=== PATIENT | male | born 1960 | race Caucasian/White ===

== ENCOUNTER → 2024-12-07 07:13 | Outpatient (REF) | payer OTHER, SELFPAY | LOC: RAD 07:13 | PROVIDERS: ATTENDING PHYSICIAN Family Medicine | DX: R10.13 Epigastric pain (principal) | CPT/HCPCS: 76700 ==

== ENCOUNTER → 2025-01-03 09:39 | Day surgery (SDC) | payer OTHER, SELFPAY ==
[2025-01-03 10:28] VITALS: BMI 40.2
[2025-01-03 10:54] LABS: Glucose - Point of Care 106 mg/dl (70-99)
--- NOTE | 2025-01-03 13:57 | ITS.CL.CARDI ---
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
Cardioversion
Procedure Report:
Cardioversion:
Mr. Rosado is a very pleasant 64 yrs old pleasant gentleman with hx of atrial fibrillation, anticoagulated with Eliquis without interruptions, presented in atrial fibrillation is here for elective DV cardioversion.
Date of the Procedure:
01/03/2025
Indications:
Recurrence of symptomatic atrial fibrillation
Pre-Operative Diagnosis:
Persistent Atrial fibrillation
Post-Operative Diagnosis:
Persistent Atrial fibrillation
Procedure Performed:
DCCV
Performing Physician:
Tg Beltrán MD
Anesthesia:
See anesthesia records
Pre-procedure Trans-esophageal Echocardiography:
Deferred. Patient has been on uninterrupted chronic anticoagulation therapy with Eliquis for over 2 months.
Detailed Description of the Procedure:
Written informed consent was obtained from the patient after a full explanation of the risks and benefits of the procedure including the risks of sedation and anesthesia.
The patient was brought to the electrophysiology laboratory in stable condition in fasting state. Continuous electrocardiographic and hemodynamic monitoring was initiated. Zoll patches were applied with leah-posterior locations.
The initial rhythm was atrial fibrillation.
Cardioversion:
A pre-procedure and anesthesia administration, a surgical pause was done with time out. The anesthesia commenced with anesthesia services. Once adequate anesthesia achieved, one synchronized 200J shock was delivered to the chest via Zoll patches
with anterior pressure applied but failed to convert him to NSR. Pressure applied to the anterior chest pad and another attempt of synchronized 360J shock was delivered with baptist of sinus rhythm. The patient remained hemodynamically stable
throughout.
Procedure End:
There was sinus rhythm with demand atrial pacing.
Complications of the Procedure:
None
Condition of Patient at Time of Transfer:
Hemodynamically stable with no neurological or vascular compromise.
Summary:
Successful cardioversion and baptist of normal sinus rhythm.
== END ==
LOC: CATH 09:39
PROVIDERS: ATTENDING PHYSICIAN Internal Medicine Cardiovascular Disease; FAMILY PHYSICIAN Family Medicine
DX: I48.19 Other persistent atrial fibrillation (principal); Z79.899 Other long term (current) drug therapy; Z79.01 Long term (current) use of anticoagulants; Z79.84 Long term (current) use of oral hypoglycemic drugs; E11.9 Type 2 diabetes mellitus without complications; Z86.718 Personal history of other venous thrombosis and embolism
CPT/HCPCS: 82962; 92960; 93005

== ENCOUNTER 2025-01-17 07:47 | Day surgery (SDC) | payer OTHER, SELFPAY ==
[2025-01-02 11:49] VITALS: BMI 40.2
[2025-01-02 12:05] LABS: % Basophils 0.9 % (0-2); % Immature Granulocytes 0.3 % (0-0.5); % Lymphocytes 31.1 % (20.5-51.1); % Monocytes 7.8 % (1.7-9.3); % Neutrophils 57.9 % (42.2-75.2); Absolute Basophils 0.1 10^3/uL (0-0.2); Absolute Eosinophils 0.1 10^3/uL (0-0.7); Absolute Monocytes 0.5 10^3/uL (0.1-0.6); Absolute Neutrophils 3.7 10^3/uL (1.4-6.5); Hematocrit 41.5 % (39.0-52.0); Hemoglobin 14.7 g/dL (13.0-18.0); Mean Corp Hgb Conc. 35.4 g/dL (33.0-37.0); Mean Corpuscular Hgb 32.5 pg (27.0-31.0); Mean Corpuscular Volume 91.6 fL (80.0-94.0); Mean Platelet Volume 11.1 fL (7.4-10.4); Nucleated Red Blood Cells % 0 % (-); Platelet Count 190 10^3/uL (130-400); Red Blood Cell Count 4.53 10^6/uL (4.70-6.10); Red Cell Dist. Width 13.6 % (11.5-14.5); White Blood Cell Count 6.4 10^3/uL (4.8-10.8)
[2025-01-02 12:21] LABS: ALT (SGPT) 25 U/L (0-50); AST (SGOT) 23 U/L (17-59); Albumin 4.5 g/dl (3.5-5.0); Alkaline Phosphatase 58 U/L (38-126); Blood Urea Nitrogen 15 mg/dl (9-20); Calcium 9.8 mg/dl (8.4-10.2); Carbon Dioxide 28 mmol/L (22-30); Chloride 105 mmol/L (98-107); Estimated Creatinine Clearance 113 ml/min; Glucose 102 mg/dl (70-99); Potassium 4.6 mmol/L (3.5-5.1); Sodium 140 mmol/L (135-145); Total Bilirubin 0.7 mg/dl (0.2-1.3); Total Protein 7.2 g/dl (6.3-8.2); eGFR > 60.00
[2025-01-17] VITALS (11 sets, daily range): BP systolic 122–141; BP diastolic 70–85; BMI 40.0
[2025-01-17 08:46] LABS: Glucose - Point of Care 116 mg/dl (70-99)
[2025-01-17 12:26] LABS: ACT-LR - POC 347 Seconds (116-155)
[2025-01-17 12:45] LABS: ACT-LR - POC 276 Seconds (116-155)
--- NOTE | 2025-01-17 13:09 | ITS.CL.ABL ---
Procurement Coordinator - Ablation
Ablation
Procedure Report:
AFIB ablation:
Mr. 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
Date of the Procedure:
01/17/2025
Indications:
Persistent atrial fibrillation
Pre-Operative Diagnosis:
Persistent atrial fibrillation
Post-Operative Diagnosis:
Persistent atrial fibrillation
Procedure Performed:
Atrial fibrillation ablation with Pulsed-Field approach for pulmonary vein isolation
Performing Physician:
Tg Beltrán MD
Assistants:
EP staff
Anesthesia:
See anesthesia records
Detailed Description of the Procedure:
Written informed consent was obtained from the patient after a full explanation of the risks and benefits of the procedure including the risks of sedation and anesthesia.
The patient was brought to the electrophysiology laboratory in stable condition in fasting state. Continuous electrocardiographic and hemodynamic monitoring was initiated.
The initial rhythm was sinus.
The procedure site was meticulously prepared with surgical scrub and allowed to dry with no pooling. Sterile draping was applied to cover the procedure site. The image intensifier was draped with sterile bag and positioned over the patient. After
infusion of local anesthetic, vascular access was obtained under ultrasound guidance and sheaths were placed over guide wire as detailed below.
Sheath and Catheter Placement:
The following catheters / sheaths were placed
Sheaths:
��������� 17Fr steerable sheath (Faradrive�, [employer]) in right femoral
��������� 9Fr in right femoral vein
Catheters:
��������� JOHN HD Grid mapping catheter � at locations of RA, LA
��������� Farawave� PFA catheter
��������� ICE catheter �[employer] ViewFlex - at locations of RA, SVC, and RV.
Intracardiac ECHO:
An 8-Niuean AcuNav intracardiac ECHO (ICE) probe was advanced through the 9-Niuean sheath in the right femoral vein into the right atrium under fluoroscopic and ICE ultrasound image guidance and a baseline ECHO study was performed. The left atrial
size was dilated. There was moderate tricuspid regurgitation. The aortic valve was grossly normal. There was normal left ventricular systolic functions. There is no pericardial effusion. All the four veins were identified and has flow identified.
There was good flow noted in the RADU.
During the procedure, ICE was used for monitoring of complications, guidance of trans-septal puncture, monitor the catheter position and tracking ablation lesions. No change in the pericardial space noted throughout the procedure.
Trans-septal Puncture:
Heparin was initiated and infused to maintain appropriate ACT. A pigtail guidewire was advanced through the 8-Niuean sheath in the right femoral vein into the superior vena cava under fluoroscopic and ICE guidance. The 9-Niuean sheath was exchanged
for a Faradrive sheath which was advanced into the superior vena cava. A transseptal RF pigtail via Faradrive connect system was utilized to perform the trans-septal puncture. The apparatus was withdrawn until it was in contact with the fossa
ovalis. The position was adjusted based on fluoroscopy and ultrasound images from ICE. Under fluoroscopic, hemodynamic and ICE ultrasound guidance, left atrium was cannulated by applying RF energy. Once atrial septum was cannulated, the pigtail wire
was advanced through the needle into the left atrium. The guide wire was advanced into the left superior pulmonary vein. Both the sheath and the dilator was advanced into the left atrium. The dilator with the needle was withdrawn. Blood was
aspirated from the Faradrive sheath and arterial blood confirmed. The sheath was flushed. Saline injection noted into the left atrium on ICE. The mapping catheter was advanced in the sheath into the left pulmonary vein. Left atrial pressure was
measured.
3D Electroanatomic Mapping:
Using the HD Grid catheter advanced through sheath into the left atrium, an electroanatomic map (EAM) of the left atrium was created using [employer] mapping system. The map was used for localization of catheter position and tacking of ablation
lesions.
The EAM of the left atrium showed 5 pulmonary veins (2 left and 3 right) with all 5 veins electrically connected to the body the LA. It showed good signals with no scar in sinus rhythm. The LA was dilated in size.
Following the EAM, preparation were made for ablation.
Ablation:
Ablation # 1: Pulmonary vein Isolation:
Using Farawave pulsed field ablation system, pulmonary vein isolation was achieved. First the ablation catheter was placed in the LSPV and ostial ablation lesions were performed in an �[place]� formation of the Farawave configuration and a counter
clock mckenzie rotation was done and ablated to cover the area between the electrodes. Then the catheter was placed on the antral location in �[place]� configuration and multiple ablation lesions were placed circumferentially on the antrum of the vein.
In the similar fashion, the LIPV were isolated.
Then the catheter was moved to right sided veins. The ostial and antral ablations were placed as noted above.
Patient went into atrial fibrillation with catheter placement into the right middle PV. AF terminated into sinus rhythm with achievement of PVI on the right side.
EPS and Confirmation of the PVI and bidirectional block:
Following achievement of entrance block at the pulmonary veins, pacing from the HD catheter in each of the four veins at 10 milliamps for 2 milliseconds showed entrance and exit block. All PVI were rechecked at the end of the case and remained
isolated. Entrance and exit block were demonstrated in all veins.
Post ablation Electroanatomic mapping:
Once ablation was completed, the EAM of the LA was done again in sinus rhythm with excellent demarcation of LA myocardium and isolated antral tissue. There was no significant scarring noted in the LA.
The RADU had healthy signals and was not isolated.
Procedure End
ICE study was done again that showed no epicardial accumulation. No complications noted.
Following the completion of the EP study, catheters were removed. Protamine 40 mg was given at the end of the procedure and ACT was checked repeatedly. The sheaths were removed and hemostasis achieved with Figure of 8 suture and manual compression
after acceptable ACT is achieved.
Left atrial Pressure:
Mean LA pressure was 16mmHg
Estimated Blood loss:
<10 cc
Specimens Removed:
None.
Implants / Devices:
None
Urine output:
None
Packs / Drains/ Tubes:
None
Instrument / Sponge Count Correct:
Yes
Complications of the Procedure:
None
Condition of Patient at Time of Transfer:
Hemodynamically stable with no neurological or vascular compromise.
Summary:
Successful atrial fibrillation ablation with Pulsed Field approach for pulmonary vein isolation.
Figures from the Procedure:
Figure 1: The electroanatomic mapping (EAM) of the left atrium with bipolar voltage (purple indicates normal electrical activity with echeverria as no myocardial muscle electric activity indicating a line of block or scar.
[2025-01-17 13:44] LABS: Glucose - Point of Care 119 mg/dl (70-99)
--- NOTE | 2025-01-17 16:08 | W.PN.UPDATE ---
Update Note
Progress Note Update
64 yo WM s/p PVI (same day). He denies cp, sob, mild groin soreness and sore throat, braulio diet, b/l groins c/d/i F08 intact, EKG Apaced. He will resume Eliquis tonight and continue dofeitilide and metoprolol. Activity restrictions reviewed. He will
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 I reinforced compliance with CPAP. He is for d/c home after 6pm if groin stable and able to void.
== END 2025-01-17 17:30 | disposition home or self-care (01) ==
LOC: CATH 07:47
PROVIDERS: ATTENDING PHYSICIAN Internal Medicine Cardiovascular Disease; FAMILY PHYSICIAN Family Medicine
DX: I48.19 Other persistent atrial fibrillation (principal); I49.5 Sick sinus syndrome; Z95.0 Presence of cardiac pacemaker; I10 Essential (primary) hypertension; Z79.82 Long term (current) use of aspirin; Z79.01 Long term (current) use of anticoagulants; Z79.84 Long term (current) use of oral hypoglycemic drugs
CPT/HCPCS: C1732; C1892; C1759; 36415; 80053; 82962; 85025; 85347; 86850; 86900; 86901; 93005; 93656; 93657; C1733; C1766

== ENCOUNTER 2025-05-19 15:49 | Emergency (ER) | payer OTHER, MEDICARE, SELFPAY ==
[2025-05-19 15:51] VITALS: BP 175/96
[2025-05-19 16:14] LABS: Hematocrit 43.2 % (39.0-52.0); Hemoglobin 15.4 g/dL (13.0-18.0); Mean Corp Hgb Conc. 35.6 g/dL (33.0-37.0); Mean Corpuscular Volume 90.2 fL (80.0-94.0); Platelet Count 173 10^3/uL (130-400); Red Cell Dist. Width 13.2 % (11.5-14.5)
[2025-05-19 16:31] LABS: ALT (SGPT) 17 U/L (0-50); AST (SGOT) 22 U/L (17-59); Albumin 4.7 g/dl (3.5-5.0); Alkaline Phosphatase 71 U/L (38-126); Blood Urea Nitrogen 16 mg/dl (9-20); Calcium 9.9 mg/dl (8.4-10.2); Carbon Dioxide 28 mmol/L (22-30); Chloride 102 mmol/L (98-107); Glucose 95 mg/dl (70-99); Lipase 106 U/L (23-300); Potassium 4.6 mmol/L (3.5-5.1); Sodium 139 mmol/L (135-145); Total Protein 7.5 g/dl (6.3-8.2); eGFR > 60.00
[2025-05-19 16:57] LABS: Absolute Neutrophils -Man Diff 4.2 10^3/uL (1.4-6.5); Normal RBC Morphology Yes; Platelets Checked Yes; Total Cells Counted 100
--- NOTE | 2025-05-19 18:07 | ED.GENMED ---
History of Present Illness
<Woodrow Muhammad, DO - Last Filed: 05/19/25 23:28>
General
Chief Complaint: Abdominal Pain
Time Seen by Provider: 05/19/25 17:11
<Lu Champion MD, Resident - Last Filed: 05/19/25 21:39>
General
Source: patient and significant other
History of Present Illness
History of Present Illness:
64 year old male with a past medical history of tach-raad syndrome, seizures, NIDDM, and HTN comes to the ED due to right upper quadrant abdominal pain. The pain began last Tuesday and resolved by itself. It then began again on Tuesday and then
started up again today. The pain is limited to his upper right quadrant of his abdomen but can also sometimes present diffusely in the upper abdomen. This pain occured back in January as well but it resolved by itself once patient vomited. Currently,
patient has not had any nausea and has been dry heaving rather than vomiting any bile. He has not had any fevers or chills, no chest pain or shortness of breath, or any headaches. He has had normal bowel movements without any blood. Patient is on
treatment with Eliquis for his AFib and took his dose this morning.
Past History
<Woodrow Muhammad, DO - Last Filed: 05/19/25 23:28>
Past History
ED Past Medical History: HTN, Seizures and Other (DVT left leg, cellulitis left leg ); Negative NIDDM
Social History
Tobacco: Non-smoker
Alcohol: Occasional
Drug: None
Personal:
Living: with family
Employment: Employed
Family History
Family History: Hypertension, Early CAD and Cancer
Review of Systems
<Lu Champion MD, Resident - Last Filed: 05/19/25 21:39>
Review of Systems
Allergies reviewed?: Yes
All Other Systems: ROS reviewed and negative except as documented in HPI and ROS
Phy Exam
<Lu Champion MD, Resident - Last Filed: 05/19/25 21:39>
General Physical Exam
General Presentation: well appearing and mild distress
General Skin: warm and dry
General Habitus: normal
General Mental: alert
General Hydration: appears well hydrated
Cardiovascular Exam
Cardiovascular Exam: no edema and pacemaker
Pulmonary Exam
Pulmonary Exam: lungs clear, no respiratory distress, no crackles and no wheezing
Gastrointestinal Exam
Gastrointestinal Exam: normal bowel sounds and distended
Palpation: left upper quadrant: No tenderness, left lower quadrant: No tenderness, right upper quadrant: Mild tenderness and right lower quadrant: No tenderness
Skin Exam
Skin Exam: normal color, warm/dry and no rash
Course
<Woodrow Muhammad, DO - Last Filed: 05/19/25 23:28>
Orders/Labs/Results
Orders:
Orders
05/19/25 15:54
ECG [Electrocardiogram (*1)] Urgent
Reason for Study: Abdominal Pain
05/19/25 15:55
EKG- Treatment ONCE
05/19/25 16:02
Complete Blood Count/With Diff Urgent
Comprehensive Metabolic Panel Urgent
Lipase Urgent
Manual Differential Urgent
05/19/25 18:38
CT Abd/Pel (IV only)-DH only Urgent
Comment:
Reason For Exam: Right upper quadrant abdominal pain
Abnormal Lab Results
05/19/25
16:02
WBC 16.2 H 10^3/uL
(4.8-10.8)
MCH 32.2 H pg
(27.0-31.0)
MPV 11.3 H fL
(7.4-10.4)
Segmented Neutrophils 26 L %
(42-75)
Eosinophils (Manual) 49 H %
(0-6)
05/19/25 16:02
05/19/25 16:02
Vital Signs
Initial and Last Documented VS:
Initial Vital Signs
Temp Pulse Resp BP Pulse Ox
98.0 F 68 20 175/96 98
05/19/25 15:51 05/19/25 15:51 05/19/25 15:51 05/19/25 15:51 05/19/25 15:51
Last Documented Vital Signs
Temp Pulse Resp BP Pulse Ox
98.0 F 62 18 126/80 98
05/19/25 15:51 05/19/25 21:46 05/19/25 21:46 05/19/25 21:46 05/19/25 21:46
<Lu Champion MD, Resident - Last Filed: 05/19/25 21:39>
Orders/Labs/Results
Orders:
Orders
05/19/25 15:54
ECG [Electrocardiogram (*1)] Urgent
Reason for Study: Abdominal Pain
05/19/25 15:55
EKG- Treatment ONCE
05/19/25 16:02
Complete Blood Count/With Diff Urgent
Comprehensive Metabolic Panel Urgent
Lipase Urgent
Manual Differential Urgent
05/19/25 18:38
CT Abd/Pel (IV only)-DH only Urgent
Comment:
Reason For Exam: Right upper quadrant abdominal pain
Abnormal Lab Results
05/19/25
16:02
WBC 16.2 H 10^3/uL
(4.8-10.8)
MCH 32.2 H pg
(27.0-31.0)
MPV 11.3 H fL
(7.4-10.4)
Segmented Neutrophils 26 L %
(42-75)
Eosinophils (Manual) 49 H %
(0-6)
05/19/25 16:02
05/19/25 16:02
Vital Signs
Initial and Last Documented VS:
Initial Vital Signs
Temp Pulse Resp BP Pulse Ox
98.0 F 68 20 175/96 98
05/19/25 15:51 05/19/25 15:51 05/19/25 15:51 05/19/25 15:51 05/19/25 15:51
Last Documented Vital Signs
Temp Pulse Resp BP Pulse Ox
98.0 F 62 18 126/80 98
05/19/25 15:51 05/19/25 21:46 05/19/25 21:46 05/19/25 21:46 05/19/25 21:46
<Lu Champion MD, Resident - Last Filed: 05/19/25 21:39>
MDM/Problems Addressed
Differential Diagnosis Includes:
Cholecystitis, Gastroenteritis, Colitis, Pancreatitis, Mesenteric Ischemia
MDM/Problems Addressed:
64 year old male with a past medical history of AFib (with pacemaker), seizures, and HTN comes to the ED due to right upper quadrant abdominal pain.
Patient had U/S of his abdomen done in 12/07 due to abdominal pain which did not show any evidence of gallstones
Less likely to be gallstones but will get CT Abd/Pelv w/ IV contrast
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
CMP shows no abnormalities
Lipase levels checked but normal, not likely to be pancreatitis
Suspicion of gastritis/possible GERD
No acute abnormalities seen on CT. Symptoms most likely due to gastritis
Will give information regarding [employer] to follow up with in the outpatient for further workup
Chronic conditions affecting care: Arrhythmia
<Woodrow Muhammad, DO - Last Filed: 05/19/25 23:28>
*Pulse Oximetry
SaO2: 98
Oxygen Mode of Delivery: Room air
<Lu Champion MD, Resident - Last Filed: 05/19/25 21:39>
*Pulse Oximetry
Patient hypoxic: no
*Critical Care Note
Total Time (30-74mins, 75-104mins- exclusive of procedures): Not Applicable
ED Attending Note
<Woodrow Muhammad DO - Last Filed: 05/19/25 23:28>
ED Attending Note
Patient seen and examined by attending physician: Yes
I performed a history and physical exam of patient and discussed management with resident, I reviewed resident's note and agree with documented findings and plan of care.: Yes
ED Attending Note:
I reviewed and agree with history treatment plan by Lu Champion MD. My exam revealed
Physical Exam
General: no apparent distress, not acutely ill
Neck: supple. no meningeal signs. normal posterior pharynx
Heart: s1/s2 regular rate and rhythm, no murmur. equal radial
pulses.
HEENT: Pupils equal round reactive to light, EOMI
Lungs: no acute respiratory distress. clear bilaterally
Abdomen: normal bowel sounds. Mild epigastric tenderness. no CVAT
Neuro: alert and oriented. no focal neurological deficits cranial nerves II through XII intact
Skin: no rash
Psychiatric: well kept. interactive and cooperative
Extremities: no edema. no calf tenderness. negative homans. good distal pulses
No acute findings on CT abdomen pelvis mild leukocytosis. Suspect possible gastritis. No signs of intra-abdominal pathology. Do not suspect ACS. Stable for discharge.
-
Portions of this chart may have been created with voice recognition software.� Occasional wrong word or��sound alike� substitutions may have occurred due to the inherent limitations of voice recognition software.
Discharge Plan
Departure
Patient Disposition: Home (Routine Discharge)
Date of Disposition: 05/19/25
Time of Disposition: 21:38
Patient with high blood pressure during this ER visit?: Yes
Condition: Good
Covid-19: Not Applicable
Discharge Problem:
Gastroenteritis
Instructions: Acid Reflux and GERD in Adults (DC), Gastritis (DC), BLOOD PRESSURE
Prescriptions:
New
pantoprazole 20 mg tablet,delayed release (DR/EC)
20 mg PO DAILY Qty: 30 0RF
No Action
fluticasone propionate 50 mcg/actuation [place],Suspension
2 spray INTRANASAL DAILY
multivitamin Tablet
1 tab PO DAILY
enalapril maleate 5 mg Tablet
5 mg PO HS
metformin 1,000 mg Tablet
1,000 mg PO BID
phenobarbital 64.8 mg Tablet
194.4 mg PO HS
Eliquis 5 mg Tablet
5 mg PO BID
mecobalamin (vitamin B12) [B12 Active] 1,000 mcg Tablet,Chewable
1,000 mcg PO DAILY
metoprolol succinate 50 mg Capsule,Sprinkle,Er 24hr
50 mg PO DAILY
Referrals:
Areli Ruiz MD [Family Provider, Family Practice] - Follow up in 1 week
Referral Note: Follow up with PCP for further work up
Daniela Robertson MD [Active, Gastroenterology] - Call in 1-3 days for appt
Referral Note: Follow up with Gastroenterology for your recurrent GI symptoms
Activity Restrictions/Additional Instructions:
As discussed, follow up with Gastroenterology for further workup regarding your abdominal symptoms.
We will send Pantoprazole 20mg to take daily to help with your symptoms
Please follow up with your PCP within for further follow up
Please return to the ED if you develop any fevers, chills, shortness of breath or any severe abdominal pain.
Interventions
Interventions:
*Risk Screen - Suicide Last Done: 05/19/25 17:15
*General Assessment Last Done: 05/19/25 15:51
*Neglect/Abuse Screening Last Done: 05/19/25 17:15
*ED COVID-19 Vaccine History Last Done: 05/19/25 17:15
*Nursing Disposition Last Done: 05/19/25 21:46
XY-Fdijcq-Paemumjwks Assessment Last Done: 05/19/25 17:15
Discharge Date and Time
Discharge Date/Time: 05/19/25 21:46
Print Language: BENGALI
[2025-05-19 19:08] VITALS: BP 126/72
[2025-05-19 21:46] VITALS: BP 126/80
== END 2025-05-19 21:46 | disposition home or self-care (01) ==
LOC: EMR 15:49
PROVIDERS: EMERGENCY PHYSICIAN Emergency Medicine; FAMILY PHYSICIAN Family Medicine
DX: K52.9 Noninfective gastroenteritis and colitis, unspecified (principal); D72.19 Other eosinophilia; E11.9 Type 2 diabetes mellitus without complications; I48.91 Unspecified atrial fibrillation; I10 Essential (primary) hypertension; I49.5 Sick sinus syndrome; Z79.01 Long term (current) use of anticoagulants; Z79.84 Long term (current) use of oral hypoglycemic drugs; Z95.0 Presence of cardiac pacemaker; Z86.718 Personal history of other venous thrombosis and embolism; Z82.49 Family history of ischemic heart disease and other diseases of the circulatory system
CPT/HCPCS: 99284; 74177; 80053; 83690; 85025; 93005; Q9967